=== PATIENT | male | born 1935 | race Caucasian/White ===

== ENCOUNTER → 2016-04-26 | Outpatient (CLI) | payer OTHER ==
--- NOTE | 2016-04-26 11:59 | DI ---
MRI LUMBAR SPINE W/WO CN,04/26/2016 9:31 AM: Clinical History: Spinal stenosis of the lumbar region. Previous Exam: June 03, 2010. Findings: Multiplanar MR images are obtained through the lumbar spine both before and after the intravenous adm inistration of 19 mL of MultiHance gadolinium contrast. Vertebral body height is preserved. Intervertebral disc height is preserved. There are some endplate degenerative changes worst at the L4/5 level. Visualized portions of the distal conus are normal lying at the L1 level. There are some intraosseous lipomas noted. The major vascular flow voids are unremarkable. There are some postsurgical changes seen within the overlying subcutaneous fat. Individual intervertebral disc spaces: L1/2: No significant stenosis. L2/3: There is a new broad-based disc bulge with some annular fissuring and some facet and ligamentum flavum hypertrophy contributing to severe central canal stenosis and mild bilateral neural foraminal narrowing. L3/4: There is disc desiccation, annular fissuring and a broad-based disc bulge combining with facet and ligamentum flavum hypertrophy. Contributing to severe central canal stenosis and moderate bilater al lateral recess stenosis. L4/5: There is disc desiccation, annular fissuring and a broad-based disc bulge combining with facet and ligamentum flavum hypertrophy contributing to moderate bilateral lateral recess stenosis. L5/S1: No significant stenosis. Impression: L2/3: There is a new broad-based disc bulge with some annular fissuring and some facet and ligamentum flavum hypertrophy contributing to severe central canal stenosis and mild bilateral neural foraminal narrowing. L3/4: There is disc desiccation, annular fissuring and a broad-based disc bulge combining with facet and ligamentum flavum hypertrophy. Contributing to severe central canal stenosis and moderate bilater al lateral recess stenosis. L4/5: There is disc desiccation, annular fissuring and a broad-based disc bulge combining with facet and ligamentum flavum hypertrophy contributing to moderate bilateral lateral recess stenosis.
== END ==
LOC: MRI 08:34
PROVIDERS: ATTEND Internal Medicine
DX: M48.06 Spinal stenosis, lumbar region (principal); M47.26 Other spondylosis with radiculopathy, lumbar region; M51.16 Intervertebral disc disorders with radiculopathy, lumbar region
CPT/HCPCS: 72158; A9579